=== PATIENT | female | born 1955 | race Caucasian/White ===

== ENCOUNTER → 2016-09-15 | Outpatient (CLI) | payer OTHER, SELFPAY ==
[~2016-09-15] MED LIST: ACTONEL PO; ALPRAZOLAM PO; APAP325 M2 PO; DEXAMETHASONE4 MG PO; DURAGESIC1 EAC1 TD; FOLIC ACID1 MG PO; HIGH BP MED; HYDROCODON-ACE1 EAC9 PO; LEVAQUIN250 MG PO; LOSARTAN POTASS50 MG PO; MARY'S MAGIC MOUTH PO; PERCOCET5/325 PO; PROTONIX20 MG PO; SUCRALFATE1 G/10 M1 PO; XANAX1 MG PO; ZOFRAN PO
--- NOTE | ~2016-09-15 | CT55 ---
[facility] A Service of [facility] RADIOLOGY TEXT RESULTS PAT[facility]: [facility]INO [facility] #: [id number] AGE: [address]: Corbin Hester MD SEX: F ORDER DR: [id number] [facility] [place], [place] [address] [id number] O MR#: [id number] Acc #: [id number] NAME: CHINO ALEX. : 1955 SEX: F STUDY DATE/TIME: 09/15/2016 14:10 UNIT: [facility] ROOM: STUDY DESCRIPTION: CT Chest W Con Attending Physician: Corbin Hester M.D. Referring Physician: Corbin Hester M.D. Ordering Physician: Corbin Hester M.D. Primary Care Physician: Myron Carty M.D. MEDICAL IMAGING REPORT This report is preliminary unless electronic signature is present EXAM CT chest. HISTORY Malignant neoplasm of the right upper lobe. Chest pain. TECHNIQUE CT of the thorax utilizing 70 mL Isovue-370 intravenous contrast. Coronal and sagittal reconstructions were obtained. This CT exam was performed with one or more of the following radiation dose reduction techniques: automatic exposure control, adjustment of mA and/or kV according to patient size, and iterative reconstruction. COMPARISON PET/CT, dated 07/28/2016. FINDINGS There is a somewhat spiculated pulmonary nodule in the periphery of the left upper lobe (image 18), measuring 1 x 0.5 cm. This previously measured 1.2 x 0.6 cm. There are scattered areas of ground glass attenuation in the right lower lobe. These areas of in a geographic distribution and very linear in configuration. This may represent acute pneumonia; however, a radiation pneumonitis should also be considered. The patient does report prior radiation therapy. This ground glass attenuation obscures the previously described right lower lobe pulmonary nodule. There is moderate emphysema. Central airways are patent. No pathologically enlarged mediastinal or hilar lymph nodes. Limited images of the upper abdomen were obtained. There are no new findings. [facility] A Service of [facility] RADIOLOGY TEXT RESULTS PATIENT: CHINO ALEX LOCATION: [facility] : 59 UNIT #: [id number] AGE: [address]: Corbin Hester MD SEX: F ORDER DR: No acute osseous abnormalities. There is anterior compression deformities involving the T5 and T7 vertebrae. These appear unchanged from the prior CT, although the outside images do not include coronal and sagittal reconstructions. IMPRESSION 1. Development of some geographic airspace opacities in the right lower lobe. Given the geographic configuration, please correlate with prior history of radiation therapy. Acute pneumonia could also be considered. However, geographic distribution is somewhat unusual. 2. The airspace opacities obscure the previously described right lower lobe pulmonary nodule. No enlarging nodule is identified. 3. Irregular pulmonary nodule in the periphery of the left upper lobe is also slight decreased in size. 4. No evidence of disease progression. Dictated by... Juanjose Albert M.D. THIS IS AN ELECTRONICALLY VERIFIED REPORT Juanjose Albert M.D. at 09/15/2016 7:47 PM MANJULA/kim TD: 09/15/2016 18:59 JOB #: [id number] MEDICAL IMAGING REPORT Page 1 of 1 COPY
[2016-09-15 22:51] LABS: POC - CREATININE 0.86 mg/dL (0.44-1.03); POC - GFR >60.0 mL/min (>60)
== END | disposition home or self-care (01) ==
LOC: CCAT 12:38
PROVIDERS: Internal Medicine Hematology & Oncology
DX: C34.11 Malignant neoplasm of upper lobe, right bronchus or lung (principal); M80.08XA Age-related osteoporosis with current pathological fracture, vertebra(e), initial encounter for fracture; R07.9 Chest pain, unspecified; M54.5 Low back pain; R91.8 Other nonspecific abnormal finding of lung field
CPT/HCPCS: 71260; 82565; Q9967